=== PATIENT | female | born 1960 | race Two or more races ===

== ENCOUNTER 2020-11-26 08:45 | Emergency (ER) | payer OTHER ==
[~2020-11-26] VITALS: Ht 157.5 cm; Wt 85.3 kg
[2020-11-26 09:17] LABS: Basophils # (auto) 0 10 ^3/uL (0-0.2); Basophils % (auto) 0.7 % (0.0-2.0); Eosinophils # (auto) 0.4 10 ^3/uL (0-0.8); Eosinophils % (auto) 5.7 % (0.0-7.0); Hematocrit 40.3 % (36.0-46.0); Hemoglobin 13.4 g/dL (12.2-16.2); Lymphocytes # (auto) 2.6 10 ^3/uL (0.4-5.4); Lymphocytes % (auto) 38.6 % (10.0-50.0); Mean Corpuscular Hemoglobin 29.7 pg (28.0-32.0); Mean Corpuscular Hgb Conc. 33.1 g/dL (32.0-36.0); Mean Corpuscular Volume 89.5 fL (80.0-100.0); Monocytes # (auto) 0.5 10 ^3/uL (0-1.3); Monocytes % (auto) 7.3 % (0.0-12.0); Neutrophils # (auto) 3.2 10 ^3/uL (1.6-8.6); Neutrophils % (auto) 47.7 % (37.0-80.0); Nucleated Red Blood Cells % 0.1 %; Red Blood Cells 4.51 10^6/uL (4.0-5.20); Red Cell Distribution Width 13.8 % (11.8-14.3); White Blood Cell 6.6 10^3/uL (4.4-10.8)
[2020-11-26 09:34] LABS: Albumin 3.8 g/dL (3.4-5.0); Calcium 9.2 mg/dL (8.5-10.1); Potassium 4.3 mmol/L (3.5-5.1)
[2020-11-26 09:37] LABS: BUN/Creatinine Ratio 15.5; Bilirubin, Total 0.7 mg/dL (0.2-1.0); Total Protein 7.7 g/dL (6.4-8.2)
[2020-11-26 10:07] LABS: Urine Bacteria NONE SEEN /hpf (None Seen); Urine Blood Negative /uL (Negative); Urine Hyaline Cast FEW /lpf (0 - 2); Urine Specific Gravity 1.005 (1.001-1.035); Urine WBC <1 /hpf (0 - 5)
[2020-11-26] MEDS ORDERED: KETOROLAC TROMETH 60MG/2ML VIAL IM ONE (10:15)
[2020-11-26] MEDS ORDERED: LACTULOSE 20Gm/30ML SOLN PO ONE (10:15)
[2020-11-26 10:41] VITALS: BP 149/78
== END 2020-11-26 10:28 | disposition home or self-care (01) ==
LOC: ER 08:45
DX: K76.0 Fatty (change of) liver, not elsewhere classified (principal); K59.00 Constipation, unspecified; K44.9 Diaphragmatic hernia without obstruction or gangrene; E11.9 Type 2 diabetes mellitus without complications; I10 Essential (primary) hypertension
CPT/HCPCS: 36415; 74176; 80053; 81001; 85025; 85049; 96372; 99284; J1885; 93005

== ENCOUNTER 2025-05-01 16:07 | Emergency (ER) | payer BC, OTHER ==
[2025-05-01 16:25] LABS: Hematocrit 38.2 % (36.0-46.0); Hemoglobin 12.7 g/dL (12.2-16.2); Mean Corpuscular Hemoglobin 29.7 pg (28.0-32.0); Mean Corpuscular Volume 89.5 fL (80.0-100.0); Nucleated Red Blood Cells % 0.0 %
[2025-05-01 16:31] LABS: Chloride 106 mmol/L (98-107); Potassium 4.0 mmol/L (3.5-5.1); Sodium 142 mmol/L (136-145)
[2025-05-01 16:32] LABS: Anion Gap 10 (5-15); Calcium 9.4 mg/dL (8.7-10.4); Carbon Dioxide 26 mmol/L (20-31)
[2025-05-01 16:37] LABS: BUN/Creatinine Ratio 23.4 (10.0-20.0); Blood Urea Nitrogen 15 mg/dL (9-23)
[2025-05-01 16:42] LABS: Glucose 144 mg/dL (74-106)
--- NOTE | 2025-05-01 17:04 | DVH ---
XY CHEST TWO VIEWS ROUTINE CLINICAL HISTORY: SOB COMPARISON: None TECHNIQUE: Frontal and lateral view of the chest was obtained FINDINGS: Lines and Tubes: None Lungs: No focal airspace disease or areas of consolidation. On the lateral x-ray there is some linear atelectasis or scarring posteriorly Pleura: No effusion. No pneumothorax. Cardiomediastinal contours: Unremarkable Bones: No acute osseous abnormality. IMPRESSION: 1. No airspace disease or pulmonary consolidations. 2. No pneumothorax no pleural effusions.
--- NOTE | 2025-05-01 17:31 | ED.PDOC ---
SOB-HPI Chief Complaint: Shortness of Breath Time Seen by MD: 17:26 Primary Care Provider: WOJCIECH Reviewed notes: Medications, Allergies Information Source: Patient Mode of Arrival: Ambulatory Severity: Moderate Timing: Days Duration: Since onset Context: At Rest, With Light Exertion, With Heavy Exertion Associated Signs and Symptoms: Cough, Nasal Congestion Past Medical History PAST MEDICAL HISTORY: DM, HTN Surgical History: Denies all surgeries CLIENT SERVICES ACCOUNT MANAGER History: Uterine Fibroids Family History Family History: Reviewed,noncontributory to illness Social History Smoker: Non-Smoker Lives In: Home Constitutional: denies: chills, diaphoresis, fatigue, fever, malaise, sweats, weakness, others EENTM: reports: nose congestion; denies: blurred vision, double vision, ear bleeding, ear discharge, ear drainage, ear pain, ear ringing, eye pain, eye redness, hearing loss, mouth pain, mouth swelling, nasal discharge, nose ble eding, nose pain, photophobia, tearing, throat pain, throat swelling, voice changes, others Respiratory: reports: cough, SOB at rest, shortness of breath, SOB with excertion; denies: hemoptysis, orthopnea, stridor, wheezing, others Cardiovascular: denies: chest pain, dizzy spells, diaphoresis, Dyspnea on exertion, edema, irregular heart beat, left arm pain, lightheadedness, palpita tions, PND, syncope, others Gastrointestinal: denies: abdomen distended, abdominal pain, blood streaked vitor wels, constipated, diarrhea, dysphagia, difficulty swallowing, hematemesis, melena, nausea, poor appetite, poor fluid intake, rectal bleeding, rectal pain, vomiting, others Genitourinary: denies: abnormal vagina bleeding, burning, dyspareunia, dysuria, flank pain, frequency, hematuria, incontinence, pain, , vagina discharge, urgency, others Neurological: denies: dizziness, fainting, headache, left sided numbness, left sided weakness, numbness, paresthesia, pre-existing deficit, right sided numbness, right sided weakness, seizure, speech problems, tingling, tremors, weakness, others Musculoskeletal: denies: back pain, gout, joint pain, joint swelling, muscle pain, muscle stiffness, neck pain, others Integumetry: denies: bruises, change in color, change in hair/nails, dryness, laceration, lesions, lumps, rash, wounds, others Allergic/Immunocompromised: denies: Difficulty Healing, Frequent Infections, Hives, Itching, others Hematologic/Lymphatic: denies: anemia, blood clots, easy bleeding, easy bruis ing, swollen glands, others Endocrine: denies: excessive hunger, excessive sweating, excessive thirst, exc essive urination, flushing, intolerance to cold, intolerance to heat, unexplained weight gain, unexplained weight loss, others Psychiatric: denies: anxiety, bipolar disorder, depression, hopeless, panic disorder, schizophrenia, sleepless, suicidal, others All Other Systems: Reviewed and Negative Physical Exam General Appearance: Moderate Distress HEENT: Normal ENT Inspection, Pharynx Normal, TMs Normal Neck: Full Range of Motion, Non-Tender, Normal, Normal Inspection Respiratory: Other (Coarse breath sounds) Cardiovascular: No Edema, No JVD, No Murmur, No Gallop, Normal Peripheral Pulses, Regular Rate/Rhythm Breast Exam: Deferred Gastrointestinal: No Organomegaly, Non Tender, No Pulsatile Mass, Normal Bowel Sounds, Soft Genitalia: Deferred Pelvic: Deferred Rectal: Deferred Extremities: No calf tenderness, Normal capillary refill, Normal inspection, Normal range of motion, Non-tender, No pedal edema Musculoskeletal : Apperance: Normal Neurologic: Alert, life science taxonomist II-XII nml as Tested, No Motor Deficits, Normal Affect, Normal Mood, No Sensory Deficits Cerebellar Function: Normal Reflexes: Normal Skin: Dry, Normal Color, Warm Peripheral Pulses: 3+ Radial (R), 3+ Radial (L) Lymphatic: No Adenopathy Was a procedure done? Was a procedure done?: No Differential Dx Differential Diagnosis: Anxiety, Asthma, Bronchitis, CHF, COPD, Panic Attack, Sinusitis X-Ray, Labs, Meds, VS Vital Signs Date Time Temp Pulse Resp B/P (MAP) Pulse Ox O2 Delivery O2 Flow Rate FiO2 05/01/25 16:21 71 05/01/25 16:08 98.2 77 20 157/96 96 98.2 Lab Test 05/01/25 16:15 Range/Units White Blood Count 8.8 4.4-10.8 10^3/uL Red Blood Count 4.28 4.0-5.20 10^6/uL Hemoglobin 12.7 12.2-16.2 g/dL Hematocrit 38.2 36.0-46.0 % Mean Corpuscular Volume 89.5 80.0-100.0 fL Mean Corpuscular Hemoglobin 29.7 28.0-32.0 pg Mean Corpuscular Hemoglobin Concent 33.3 32.0-36.0 g/dL Red Cell Distribution Width 13.5 11.8-14.3 % Platelet Count 297 140-450 10^3/uL Mean Platelet Volume 7.6 6.9-10.8 fL Neutrophils (%) (Auto) 57.8 37.0-80.0 % Lymphocytes (%) (Auto) 30.1 10.0-50.0 % Monocytes (%) (Auto) 5.2 0.0-12.0 % Eosinophils (%) (Auto) 6.0 0.0-7.0 % Basophils (%) (Auto) 0.9 0.0-2.0 % Neutrophils # (Auto) 5.1 1.6-8.6 10 ^3/uL Lymphocytes # (Auto) 2.6 0.4-5.4 10 ^3/uL Monocytes # (Auto) 0.5 0-1.3 10 ^3/uL Eosinophils # (Auto) 0.5 0-0.8 10 ^3/uL Basophils # (Auto) 0.1 0-0.2 10 ^3/uL Nucleated Red Blood Cells 0.0 % Sodium Level 142 136-145 mmol/L Potassium Level 4.0 3.5-5.1 mmol/L Chloride Level 106 98-107 mmol/L Carbon Dioxide Level 26 20-31 mmol/L Anion Gap 10 5-15 Blood Urea Nitrogen 15 9-23 mg/dL Creatinine 0.64 0.550-1.02 mg/dL Glomerular Filtration Rate Calc 99 >90 mL/min BUN/Creatinine Ratio 23.4 H 10.0-20.0 Serum Glucose 144 H 74-106 mg/dL Calcium Level 9.4 8.7-10.4 mg/dL Troponin I High Sensitivity < 3 L </=34 ng/L [address] [address] Ph: [phone] DIAGNOSTIC IMAGING Diagnostic Imaging Report : [id number] Signed PATIENT: RANDYFLORENCIO ACCT: [id number] UNIT: [id number] : 1960 LOC: ER ROOM / BED: / AGE / SEX: 64 / F ADM STATUS: REG ER SERVICE 1610 ORDERING PHYSICIAN: AIDEE KWONG MD PROCEDURE(s): CXR2 - CHEST TWO VIEWS ROUTINE REASON: SOB ORDER NUMBER(s): [id number], ACCESSION NUMBER(s): [id number] XY CHEST TWO VIEWS ROUTINE CLINICAL HISTORY: SOB COMPARISON: None TECHNIQUE: Frontal and lateral view of the chest was obtained FINDINGS: Lines and Tubes: None Lungs: No focal airspace disease or areas of consolidation. On the lateral x-ray there is some linear atelectasis or scarring posteriorly Pleura: No effusion. No pneumothorax. Cardiomediastinal contours: Unremarkable Bones: No acute osseous abnormality. IMPRESSION: 1. No airspace disease or pulmonary consolidations. 2. No pneumothorax no pleural effusions. ATED BY: KAREN HARRISON Jr., DO DICTATED DATE/TIME: 05/01/251700 SIGNED BY: KAREN HARRISON Jr., SIGNED DATE/TIME: 05/01/251700 CC: Patient alert. Vitals stable. Complaining of cough. Vitals stable. Chest x-ray reviewed does not show any acute changes. Ambulating without difficulty. No leg swelling. No shortness a breath. No chest pain. Does not meet any criteria. No discoloration. Heart rate within normal limits. Saturation pristine on room air. Was given prescription of amoxicillin clindamycin antibiotic. Was told to follow up with her primary care physician. Was told to come back if there is any problem. Time of 1ST Reevaluation: 17:54 Reevaluation 1ST: Unchanged Patient Education/Counseling: Diagnosis, Treatment Family Education/Counseling: No Family Present SEPSIS Sepsis Screen Date sepsis recognized/suspect: May 01, 2025 Time Sepsis recognized/suspect: 1609 Recent Procedure: No On Antibiotic Therapy: No Respiratory Rate >20: No Heart Rate >90: No Temp<36 C (96.8 F) or >38.3 C: No SBP <90 or MAP <65 mmHG: No New Acute Mental Status Change: No Is the patient on CPAP, BIPAP,: No Physician Orders Chest Two Views Routine (05/01/25 16:10) Electrocardigram (05/01/25 16:10) Ceftriaxone 1gm/50ml (Rocephin) (05/01/25 18:00) Azithromycin 500mg/250ml (Zithromax 500m (05/01/25 18:00) Vital Signs Date Time Temp Pulse Resp B/P (MAP) Pulse Ox O2 Delivery O2 Flow Rate FiO2 05/01/25 16:21 71 05/01/25 16:08 98.2 77 20 157/96 96 98.2 Laboratory Tests Test 05/01/25 16:15 White Blood Count 8.8 10^3/uL (4.4-10.8) Departure 1 Departure Time of Disposition: 17:47 Impression: Primary Impression: Pneumonitis Disposition: HOME / SELF CARE / HOMELESS Condition: Good e-Prescriptions Clindamycin Hcl (Clindamycin Hcl) 300 Mg Cap 1 CAP PO TID for 7 Days, #21 CAP Prov: AIDEE KWONG MD 05/01/25 Amoxicillin Trihydrate (Amoxicillin) 500 Mg Tab 1 TAB PO TID for 7 Days, #21 TAB Prov: AIDEE KWONG MD 05/01/25 Discharged With: Self Critical Care Note Critical Care Time?: No Stability Stability form required: No Heart Score Heart Score: Heart Score Response (Comments) Value History N/A 0 EKG N/A 0 Age N/A 0 Risk Factors N/A 0 Troponin N/A 0 Total 0 I personally scribed for AIDEE KWONG MD ([email or web address]) on 05/01/25 at 17:31. Electronically submitted by Mildred Calderon ([facility]). AIDEE KWONG MD May 01, 2025 17:31
[2025-05-01] MEDS ORDERED: AMOX500T3 PO (18:01)
[2025-05-01] MEDS ORDERED: CLIN1CAP70 PO (18:01)
[2025-05-01] MEDS: AZITHROMYCIN 500MG/250ML 250 ML IV ONE (19:57)
[2025-05-01 22:05] VITALS: BP 147/73; PULSE 72; RESP 18; TEMP 98.4; O2SAT 95
--- NOTE | 2025-05-02 07:12 | ECG ---
[facility] Test Date: 2025-05-01 Test Time: 16:21:20 Pat Name: FLORENCIO PADILLA Department: ED Room: Gender: F Sports Statistician: MAYRA : 1960 Requested By: AIDEE KWONG Order Number: [id number] Reading MD: Stuart Martinez Measurements Intervals Sharon Rate: 71 P: 35 NC: 141 QRS: -52 QRSD: 80 T: 41 QT: 384 QTc: 418 Interpretive Statements Sinus rhythm Abnormal R-wave progression, early transition Inferior infarct, old Consider anterior infarct Electronically Signed On 05-04-2025 15:01:08 PST by Stuart Martinez Please click the below link to view image of tracing.
== END 2025-05-01 22:08 | disposition home or self-care (01) ==
LOC: ER 16:07
DX: J98.4 Other disorders of lung (principal); E11.9 Type 2 diabetes mellitus without complications; I10 Essential (primary) hypertension; Z79.899 Other long term (current) drug therapy
CPT/HCPCS: 36415; 71046; 80048; 84484; 85025; 93005; 96365; 96368; 99285; J0456; J0696; 96366